=== PATIENT | male | born 1990 ===

== ENCOUNTER 2019-04-21 16:45 | Emergency (ER) | payer SELFPAY ==
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
== END 2019-04-21 17:42 | disposition home or self-care (01) ==
LOC: ERS 16:45
DX: S93.401A Sprain of unspecified ligament of right ankle, initial encounter (principal); V89.2XXA Person injured in unspecified motor-vehicle accident, traffic, initial encounter
CPT/HCPCS: 29515